=== PATIENT | female | born 1965 | race Two or more races ===

== ENCOUNTER 2025-09-11 10:53 | Inpatient (IN) | payer OTHER ==
[~2025-09-11] VITALS: Ht 154.9 cm; Wt 56.2 kg
[2025-09-11] MEDS ORDERED: IOHEXOL-350 100 ML VIAL IV ONE (11:01)
[2025-09-11] MEDS ORDERED: IV NS 0.9% 250 ML IV ONE (11:01)
[2025-09-11 11:14] LABS: RED BLOOD CELL COUNT(AUTO) 4.25 MIL/uL (4.0-5.2); RED CELL DISTRIBUTION WIDTH 14.4 % (11.5-15.0); WHITE BLOOD COUNT (AUTO) 4.4 K/uL (4.3-11.0)
[2025-09-11 11:16] LABS: CALCIUM, SERUM 8.5 mg/dL (8.5-10.1); CREATININE 0.7 mg/dL (0.6-1.3); SODIUM SERUM 143.0 mmol/L (136-145); UREA NITROGEN, BLOOD 6.0 mg/dL (7-18)
[2025-09-11 11:17] LABS: PLATELET COUNT (AUTO) 37 K/uL (150-450)
[2025-09-11 11:30] LABS: INR 1.19 (0.91-1.10)
[2025-09-11] MEDS ORDERED: LORAZEPAM INJ 2 MG/ML VIAL ONE (11:43)
[2025-09-11] MEDS: LORAZEPAM INJ 2 MG/ML VIAL IV ONE (11:45)
[2025-09-11 11:52] LABS: LYMPHOCYTES % (MANUAL) 37 % (16-48); NEUTROPHILS % (MANUAL) 60 (42-76)
[2025-09-11 11:53] LABS: MONOCYTES % (MANUAL) 3 % (0-11.0); PLATELET ESTIMATE DECREASED
[2025-09-11] MEDS: LEVETIRACETAM (500MG) 2,000 MG in IV NS 0.9% 80 ML IV STA (12:43)
[2025-09-11] MEDS ORDERED: LORAZEPAM INJ 2 MG/ML VIAL IV PRN (14:30)
[2025-09-11] MEDS ORDERED: ACETAMINOPHEN 325 MG TABLET ONE (14:41)
[2025-09-11] MEDS: ACETAMINOPHEN 325 MG TABLET PO PRN (14:43)
[2025-09-11 14:53] LABS: ASPARTATE AMINOTRANSFERASE 86 U/L (15-37); TOTAL PROTEIN, SERUM 6.4 g/dL (6.4-8.2)
[2025-09-11 15:02] LABS: SERUM AMMONIA 44 umol/L (11-32)
[2025-09-11] MEDS: BLOOD SUGAR DIAGNOSTIC 1 EACH STRIP IN SCH (17:29)
[2025-09-11] MEDS: POTASSIUM CHLORIDE 20 MEQ TAB.PRT.SR PO ONE (18:29)
[2025-09-11] MEDS: LEVETIRACETAM (500MG) 750 MG in IV NS 0.9% 100 ML IV SCH (20:51)
[2025-09-12] VITALS: BP 125/69; TEMP 98.2; O2SAT 96
[2025-09-12 01:00] VITALS: BP 125/69; TEMP 98.2; O2SAT 96
[2025-09-12 04:00] VITALS: BP 135/73; TEMP 98.8; O2SAT 97
[2025-09-12 05:00] VITALS: BP 135/73; TEMP 98.8; O2SAT 97
[2025-09-12] MEDS ORDERED: PANTOPRAZOLE 40 MG TABLET.DR PO SCH (07:30)
[2025-09-12 08:14] LABS: RED BLOOD CELL COUNT(AUTO) 3.68 MIL/uL (4.0-5.2); RED CELL DISTRIBUTION WIDTH 14.1 % (11.5-15.0); WHITE BLOOD COUNT (AUTO) 4.3 K/uL (4.3-11.0)
[2025-09-12 08:30] LABS: CALCIUM, SERUM 8.4 mg/dL (8.5-10.1); CREATININE 0.6 mg/dL (0.6-1.3); SODIUM SERUM 141.0 mmol/L (136-145); UREA NITROGEN, BLOOD 8.0 mg/dL (7-18)
[2025-09-12] MEDS: PANTOPRAZOLE 40 MG TABLET.DR PO SCH (08:39)
[2025-09-12 08:40] LABS: PLATELET COUNT (AUTO) 30 K/uL (150-450)
[2025-09-12 09:00] VITALS: BP 126/78; TEMP 98.2; O2SAT 95
[2025-09-12 09:09] LABS: LYMPHOCYTES % (MANUAL) 11 % (16-48); MONOCYTES % (MANUAL) 3 % (0-11.0); NEUTROPHILS % (MANUAL) 86 (42-76); PLATELET ESTIMATE DECREASED
[2025-09-12 09:46] LABS: LDL 82.0 mg/dL (0-99)
[2025-09-12] MEDS: HYDROCODONE/APAP 5/325MG TABLET PO PRN (10:08)
[2025-09-12 13:00] VITALS: BP 128/65; TEMP 98.3; O2SAT 95
== END 2025-09-12 14:00 | disposition short-term general hospital (02) | DRG 101 ==
LOC: ER 10:57 → TELE1 14:22
DX: R56.9 Unspecified convulsions (principal); D69.6 Thrombocytopenia, unspecified; K74.60 Unspecified cirrhosis of liver; F32.A Depression, unspecified; G93.89 Other specified disorders of brain; E87.6 Hypokalemia; R29.700 NIHSS score 0; Z86.73 Personal history of transient ischemic attack (TIA), and cerebral infarction without residual deficits; F41.9 Anxiety disorder, unspecified; Z79.899 Other long term (current) drug therapy; M25.462 Effusion, left knee
CPT/HCPCS: 36415; 70450-TC; 70496-TC; 70498-TC; 71045-TC; 73552; 73564-TC; 80048-TC; 80061-TC; 80076-TC; 82140-TC; 82962-TC; 84443-TC; 85027-TC; 85652-TC; 85730-TC; 86140-TC; 92526; 92611; 94799-TC; 97112-TC; 97116-TC; 97530-TC; 97535-TC; A4223; G0378; J1953; J2060; J7030; J7050; Q9967